=== PATIENT | female | born 1975 | race Caucasian/White ===

== ENCOUNTER 2018-05-31 07:34 | Outpatient (CLI) | payer OTHER | END 2018-05-31 07:36 | disposition home or self-care (01) | LOC: RX STUDY 07:34 | DX: E73.8 Other lactose intolerance (principal) ==

== ENCOUNTER 2020-10-31 08:14 | Emergency (ER) | payer OTHER ==
[~2020-10-31] VITALS: Ht 157.5 cm; Wt 68.0 kg
[2020-10-31] MEDS ORDERED: NEXIUM20 M1 (08:29)
[2020-10-31] MEDS ORDERED: PEPCID AC20 MG (08:29)
[2020-10-31] MEDS ORDERED: TRAZODONE HCL150 MG (08:29)
[2020-10-31] MEDS ORDERED: COZAAR50 MG (08:29)
[2020-10-31] MEDS ORDERED: GILENYA0.5 MG (08:30)
== END 2020-10-31 12:54 | disposition home or self-care (01) ==
LOC: ER 08:14
DX: R50.9 Fever, unspecified (principal); R10.12 Left upper quadrant pain